=== PATIENT | male | born 1975 | race Two or more races ===

== ENCOUNTER 2023-07-27 10:40 | Emergency (ER) | payer OTHER ==
[~2023-07-27] VITALS: Ht 167.6 cm; Wt 68.0 kg
[2023-07-27 10:49] VITALS: BP 146/86; TEMP 98; O2SAT 100
== END 2023-07-27 10:59 ==
LOC: ER 10:48
DX: G89.29 Other chronic pain (principal); M54.50 Low back pain, unspecified